=== PATIENT | female | born 1980 | race Two or more races ===

== ENCOUNTER 2019-02-19 06:00 | Day surgery (SDC) | payer OTHER ==
[~2019-02-19] VITALS: Ht 167.6 cm; Wt 64.4 kg
[2019-02-20] MEDS ORDERED: Tylenol #3 PO (08:48)
== END 2019-02-20 08:00 | disposition home or self-care (01) ==
LOC: SURH 06:00 → O/R 06:00 → CIR.AMB 06:00 → O/R 14:03 → OB/GYN 14:03 → SURH 15:30 → EDSTATUS 15:30 → SURH 16:00 → OB/GYN 02-20 07:43 → CIR.AMB 02-20 08:00 → O/R 02-20 09:20 → OB/GYN 02-20 09:20
DX: D25.0 Submucous leiomyoma of uterus (principal)

== ENCOUNTER 2019-02-24 00:55 | Emergency (ER) | payer OTHER ==
[~2019-02-24] VITALS: Ht 165.1 cm; Wt 64.4 kg
[~2019-02-24 00:55] MED LIST: Tylenol #3 PO
[2019-02-24] MEDS ORDERED: ONDANSETRON ODT4 MG SL (06:17)
[2019-02-24] MEDS ORDERED: CELECOXIB100 MG PO (06:17)
[2019-02-24] MEDS ORDERED: PEPCID AC20 MG PO (06:17)
[2019-02-24] MEDS ORDERED: ULTRACET PO (06:17)
== END 2019-02-24 12:23 | disposition home or self-care (01) ==
LOC: ER 00:55
DX: K29.70 Gastritis, unspecified, without bleeding (principal); E86.0 Dehydration